=== PATIENT | female | born 1950 | race Caucasian/White ===

== ENCOUNTER 2018-06-09 08:19 | Day surgery (SDC) | payer MEDICARE, OTHER ==
[~2018-06-09 08:19] MED LIST: Acetaminophen TAB* 325 MG PO PRN; Buffered Lidocaine 0.9% SYRIN* 5 ML/SYR SYRINGE INTRADERM ONE
[2018-06-09] MEDS ORDERED: fentaNYL* 50 MCG/ML 2 ML VIAL (100 MCG VIAL) ONE (08:51)
[2018-06-09] MEDS ORDERED: Midazolam* 1 MG/ML 2 ML VIAL (2 MG) ONE (08:51)
[2018-06-09 09:53] VITALS: BP 111/63
[2018-06-09] MEDS ORDERED: Neomycin/Polymy/Dex OPHTH.OIN* 3.5 GM ONE (10:20)
[2018-06-09] MEDS ORDERED: Tropicamide 1% OPTH.SOL* BTL ONE (10:20)
[2018-06-09] MEDS ORDERED: Ketorolac 0.5% OPHTH (NF) 0.5 % 5 ML BTL ONE (10:20)
[2018-06-09] MEDS ORDERED: Cyclopentolate 1% OPTH.SOL* 2 ML BTL ONE (10:20)
[2018-06-09] MEDS ORDERED: Phenylephrine 2.5% OPTH.SOL* 2 ML BTL ONE (10:20)
[2018-06-09] MEDS ORDERED: Tetracaine 0.5% OPTH.SOL 4 ML* 1 DROP BTL ONE (10:20)
[2018-06-09] MEDS ORDERED: Lidocaine 1%* 5 ML VIAL ONE (10:20)
--- NOTE | 2018-06-10 05:22 | OP ---
DATE OF OPERATION: 06/09/18 - [facility] DATE OF : 46 SURGEON: Dr. Trivedi. RISK DEVELOPER: None. ANESTHESIA: Topical with intravenous sedation. PRE-OP DIAGNOSIS: Cataract and glaucoma, right eye. POST-OP DIAGNOSIS: Cataract and glaucoma, right eye. OPERATIVE PROCEDURE: Phacoemulsification and cataract extraction with posterior chamber intraocular lens implant and CyPass implant, right eye. COMPLICATIONS: None. BLOOD LOSS: None. DESCRIPTION OF PROCEDURE: The patient was brought to the operating room and given intravenous sedation. A drop of Tetracaine was placed in her right eye. The patient was prepped and draped in the usual sterile fashion for ophthalmic surgery and attention was directed to the right eye where a speculum was placed. A paracentesis was created at the 11 o'clock position and 0.1 cc of 1% preservative- free Lidocaine was injected into the anterior chamber followed by DisCoVisc. The eye was digitally stabilized and a 2.75 mm keratome was used to create a triplanar clear corneal incision at the 9 o'clock position. A continuous curvilinear capsulorrhexis was created with a cystotome and Utrata forceps. BSS on a cannula was used to hydrodissect the lens from the capsule. Phacoemulsification was performed in a vlykhd-raf-rbfjgyu technique to create 4 fragments which were removed. Residual cortical material was removed with irrigation and aspiration. DisCoVisc was used to inflate the capsular bag. An AU00T0 14.0 diopter lens was inserted into the capsular bag. Supplemental DisCoVisc was placed in the anterior chamber and on the surface of the cornea. The head was rotated away from the microscope and the surgeon was turned toward the microscope. A gonioprism was placed on the surface of the eye. A CyPass was introduced into the anterior chamber on its supervisor records change. It was directed into the supraciliary space. The CyPass was released to this point and tapped into the appropriate level. The CyPass supervisor records change and the gonioprism were removed. The patient's head and the microscope were returned to a neutral position. Irrigation and aspiration were performed to remove viscoelastic from the eye. BSS on a cannula was used to hydrate the cornea and seal the wound. At the end of the case, the pupil was round and the lens was centered. The CyPass was in good position and there was no active bleeding. The eye pressure appeared normal and the wound was watertight. The speculum was removed and topical Maxitrol ointment was placed on the surface of the eye. The eye was closed, patched, and shielded, and the patient was sent to the recovery room in stable condition with postoperative instructions and followup appointment given. [id number]/[facility] #: [id number] MTDD
== END 2018-06-09 10:01 | disposition home or self-care (01) ==
LOC: OREAST 08:19
PROVIDERS: ATTEND Ophthalmology
DX: H25.11 Age-related nuclear cataract, right eye (principal); H40.1111 Primary open-angle glaucoma, right eye, mild stage; J45.909 Unspecified asthma, uncomplicated; F41.8 Other specified anxiety disorders; Z87.891 Personal history of nicotine dependence; R05 Cough
CPT/HCPCS: A9270-GY; C1783; J2250; J3010; V2632

== ENCOUNTER 2018-06-16 08:45 | Day surgery (SDC) | payer MEDICARE, OTHER ==
[2018-06-16] MEDS ORDERED: fentaNYL* 50 MCG/ML 2 ML VIAL (100 MCG VIAL) ONE (09:31)
[2018-06-16] MEDS ORDERED: Midazolam* 1 MG/ML 2 ML VIAL (2 MG) ONE (09:31)
[2018-06-16 10:40] VITALS: BP 116/66
[2018-06-16] MEDS ORDERED: Acetylcholine 1:100 OPTH* OPHTH.SOLN ONE (13:18)
[2018-06-16] MEDS ORDERED: Lidocaine 1%* 5 ML VIAL ONE (13:19)
[2018-06-16] MEDS ORDERED: Ketorolac 0.5% OPHTH (NF) 0.5 % 5 ML BTL ONE (13:19)
[2018-06-16] MEDS ORDERED: Cyclopentolate 1% OPTH.SOL* 2 ML BTL ONE (13:19)
[2018-06-16] MEDS ORDERED: Tetracaine 0.5% OPTH.SOL 4 ML* 1 DROP BTL ONE (13:19)
[2018-06-16] MEDS ORDERED: Tropicamide 1% OPTH.SOL* BTL ONE (13:19)
[2018-06-16] MEDS ORDERED: Phenylephrine 2.5% OPTH.SOL* 2 ML BTL ONE (13:19)
[2018-06-16] MEDS ORDERED: Neomycin/Polymy/Dex OPHTH.OIN* 3.5 GM ONE (13:19)
--- NOTE | 2018-06-16 22:10 | OP ---
DATE OF OPERATION: 06/16/18 - [facility] DATE OF : 46 SURGEON: Dr. Gab Trivedi EDGER MACHINE OPERATOR: None. ANESTHESIA: Topical with intravenous sedation. PRE-OP DIAGNOSIS: Cataract and glaucoma, left eye. POST-OP DIAGNOSIS: Cataract and glaucoma, left eye. OPERATIVE PROCEDURE: Phacoemulsification and cataract extraction with posterior chamber intraocular lens implant, left eye and CyPass implant, left eye. COMPLICATIONS: None. BLOOD LOSS: None. DESCRIPTION OF PROCEDURE: The patient was brought to the operating room and received intravenous sedation. A drop of Tetracaine was placed into her left eye. The patient was prepped and draped in the usual sterile fashion for ophthalmic surgery and attention was directed to the left eye where a speculum was placed. A paracentesis was created at the 5 o'clock position and 0.1 cc of 1% preservative- free Lidocaine was injected into the anterior chamber followed by DisCoVisc. The eye was digitally stabilized while a 2.75 mm keratome was used to create a triplanar clear corneal incision at the 3 o'clock position. A continuous curvilinear capsulorrhexis was created using a cystotome and Utrata forceps. BSS on a cannula was used to hydrodissect the lens from the capsule. Phacoemulsification was performed in a qaxuub-dxm-mwqxuly technique to create four fragments which were removed. Residual cortical material was removed with irrigation and aspiration. DisCoVisc was used to inflate the capsular bag. An AU00T0 14.5 diopter lens was inserted into the capsular bag. Supplemental DisCoVisc was used to deepen the anterior chamber and coat the surface of the cornea. The patient's head was rotated away from the surgeon. The microscope was rotated towards the surgeon. A gonioprism was placed on the surface of the eye. A CyPass on its inserter promotional item was introduced into the anterior chamber. Under direct visualization, the CyPass was placed into the superciliary space in the nasal aspect of the angle. The CyPass inserter promotional item and gonioprism were removed. The head of the patient and the microscope were returned to a neutral position. Irrigation and aspiration were performed to remove viscoelastic from the eye. A small amount of Miochol was injected into the anterior chamber to be sure the pupil became round. BSS on a cannula was used to hydrate the corneal stroma and seal the wound. At the end of the case, the pupil was round. The eye pressure appeared normal, the CyPass was in proper position, the lens was stable and centered, the wound was watertight. Topical Maxitrol ointment was placed on the surface of the eye. The eye was closed, patched, and shielded and the patient was sent to the recovery room in stable condition with postoperative instructions and a followup appointment given. [id number]/[facility] #: [id number] ROSITA
== END 2018-06-16 10:49 | disposition home or self-care (01) ==
LOC: OREAST 08:45
PROVIDERS: ATTEND Ophthalmology
DX: H25.12 Age-related nuclear cataract, left eye (principal); H40.89 Other specified glaucoma; J45.30 Mild persistent asthma, uncomplicated; Z87.891 Personal history of nicotine dependence; G47.33 Obstructive sleep apnea (adult) (pediatric); E78.5 Hyperlipidemia, unspecified; K21.9 Gastro-esophageal reflux disease without esophagitis; M19.90 Unspecified osteoarthritis, unspecified site; F32.9 Major depressive disorder, single episode, unspecified
CPT/HCPCS: A9270-GY; C1783; J2250; J3010; V2632